=== PATIENT | female | born 1970 | race American Indian/Alaskan Native ===

== ENCOUNTER 2016-06-26 08:23 | Emergency (ER) | payer MEDICAID ==
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
[~2016-06-26 08:23] MED LIST: ATIVAN 1 MG1 MG PO; HYDROCORT 1% CR30 GM TOP; LEVOTHROID (S100 MCG PO; NEURONTIN300 MG PO; NICODERM / HABIT7 MG TOP; NORCO 7.5-3251 EACH PO; SEROQUEL100 MG PO; VISTARIL25 M1 PO; ZYPREXA10 MG PO; [UNRECOGNIZED DRUG - OTHER]
[2016-06-26 08:54] LABS: BASOPHIL % 0.8 %; HEMATOCRIT 44.1 % (33.0-46.0); HEMOGLOBIN 14.4 g/dL (10.0-15.0); LYMPHOCYTE % 40.4 %; MCH 29.4 pg (27.0-34.0); MCHC 32.7 gm/dL (32.0-36.5); MCV 90.2 fl (83.0-98.0); MONOCYTE # 0.4 K/uL (0.0-1.0); MONOCYTE % 8.9 %; MPV 10.6 fl (9.4-12.4); NEUTROPHIL # (ANC) 2.4 K/uL (1.8-7.8); NEUTROPHIL % 49.9 %; NRBC % 0 /100WBC (0-0.00); PLATELET COUNT 224 K/uL (150-450); RBC 4.89 M/uL (3.50-5.50); RDW-CV 13.7 % (11.9-14.6); WBC 4.8 K/uL (4.0-11.0)
[2016-06-26 09:04] LABS: PROTIME 10.9 SECONDS (9.6-11.1); PTT 25 SECONDS (25-32)
[2016-06-26 09:17] LABS: ALBUMIN 4.2 gm/dL (3.5-5.0); ALK PHOS 68 IU/L (33-138); ALT 11 IU/L (12-78); ANION GAP 10.6 (10.0-19.0); AST 9 IU/L (10-40); BLOOD UREA NITROGEN 14 mg/dL (6-24); CALCIUM 8.8 mg/dL (8.5-10.5); CHLORIDE 110 mMol/L (96-110); CO2 24 mMol/L (22-32); CREATININE 0.6 mg/dL (0.5-1.1); ESTIMATED GFR (MDRD EQUATION) > 60; POTASSIUM 3.6 mMol/L (3.7-5.1); SODIUM 141 mMol/L (135-145); TOTAL BILIRUBIN 0.5 mg/dL (0.0-1.5); TOTAL PROTEIN 7.6 g/dL (6.0-8.4)
[2016-06-26 09:48] LABS: BARBITURATE NEGATIVE (NEGATIVE); COCAINE NEGATIVE (NEGATIVE); OPIATES POSITIVE (NEGATIVE)
[2016-06-26 09:50] LABS: AMPHETAMINE NEGATIVE (NEGATIVE)
[2016-07-17] MEDS ORDERED: PROZAC20 MG PO (10:15)
[2016-07-17] MEDS ORDERED: AMBIEN5 MG PO (10:22)
[2016-07-17] MEDS ORDERED: TYLENOL325 MG PO (10:23)
[2016-07-17] MEDS ORDERED: XANAX0.25 MG PO (10:27)
[2016-08-04] MEDS ORDERED: NICODERM CQ1 EAC1 TOP (11:22)
== END 2016-06-26 10:45 | disposition disaster alternative care site (69) ==
LOC: GMED 08:23
PROVIDERS: Family Medicine
DX: F41.9 Anxiety disorder, unspecified (principal); E03.9 Hypothyroidism, unspecified; Z88.1 Allergy status to other antibiotic agents; Z88.8 Allergy status to other drugs, medicaments and biological substances; Z90.49 Acquired absence of other specified parts of digestive tract
CPT/HCPCS: G0480

== ENCOUNTER 2016-07-13 17:49 | Emergency (ER) | payer MEDICAID ==
--- NOTE | ~2016-07-13 | ER ---
PATIENT'S NAME: BASSEM [facility] AGE: 45 Y [address] ROOM: [place] [address] LOCATION: [facility] ADMIT DATE: 07/13/2016 ER/Outpatient Report DISCHARGE DATE: 07/13/2016 FAMILY PHYSICIAN: Mak Stone MD ATTENDING PHYSICIAN: David Lopez Admission date and time are documented on the medical record. I saw the patient at 1830 hours. CHIEF COMPLAINT: Anxiety. HISTORY OF PRESENT ILLNESS: This patient is a 45-year-old female who has a history of anxiety and panic attacks. Ran out of her Ativan on Wednesday. She kind of had a "panic attack" around 1700 hours this afternoon. She had racing thoughts, room was spinning, short of breath, shaky. She had generalized headache. Some nausea, but no vomiting, diarrhea. No urinary complaints. No joint or muscle swelling, redness, or pain. No skin eruptions or rash. Does have a history of bipolar disorder, psychosis, anxiety, depression, or seizure disorder. No endocrine problems. No fall or trauma. No recent colds, coughs, flus, fever, chills, or sweats. No chest pain. No abdominal pain. HOME MEDICATIONS: See attached medication list. ALLERGIES: ROCEPHIN, TRAMADOL, AND TORADOL. SOCIAL HISTORY: The patient smokes half-pack of cigarettes per day and nondrinker. SIGNIFICANT PAST MEDICAL HISTORY: Headaches, bipolar disorder, psychosis, seizure disorder, anxiety, depression, hypothyroidism, compression fracture, L3, L4, L5, T12, and tobacco abuse. OPERATIONS: Cholecystectomy. REVIEW OF SYSTEMS: All systems reviewed by me are negative with the exception of those discussed in the history of present illness. PHYSICAL EXAMINATION: VITAL SIGNS: Temperature 96.4, tympanic, pulse 72, regular, respirations 18, PATIENT'S NAME: BASSEM [facility] AGE: 45 Y [address] ROOM: [place] [address] LOCATION: [facility] ADMIT DATE: 07/13/2016 ER/Outpatient Report DISCHARGE DATE: 07/13/2016 FAMILY PHYSICIAN: Mak Stone MD ATTENDING PHYSICIAN: David Lopez blood pressure 129/82, and O2 sat on room air is 96%. HEAD: Normocephalic. EYES, EARS, NOSE, AND THROAT: Clear. Mucous membranes moist. NECK: Negative. SPINE: Negative. LUNGS: Clear. Good airflow. No rales, rhonchi, or wheezes. HEART: Regular. Pulses are palpable. ABDOMEN: Soft, nondistended, nontender. Good bowel tones. No organomegaly or abnormal mass palpable. EXTREMITIES: No peripheral edema, cyanosis, or deformity. NEUROVASCULAR: Intact. SKIN: Clear. IMPRESSION: 1. Anxiety. 2. Headache. 3. History of bipolar disorder. 4. History of psychosis. 5. History of seizure disorder. 6. Hypothyroidism. 7. Tobacco abuse. PLAN: The patient was given Ativan 1 mg orally in the emergency room. Discharged home. Observation. Activity as tolerated. Continue present home medications and care. Ativan 1 mg 3 times a day. Follow up with personal physician as scheduled. Discussed ensued with the patient concerning my findings and recommendations, she understands. MD MYNOR GOTTI/modl /[id number] d: 07/14/1653 t: 07/16/16 181, OUTPATIENT REPORT
[2016-07-17] MEDS ORDERED: PROZAC20 MG PO (10:15)
[2016-07-17] MEDS ORDERED: AMBIEN5 MG PO (10:22)
[2016-07-17] MEDS ORDERED: TYLENOL325 MG PO (10:23)
[2016-07-17] MEDS ORDERED: XANAX0.25 MG PO (10:27)
[2016-08-04] MEDS ORDERED: NICODERM CQ1 EAC1 TOP (11:22)
== END 2016-07-13 18:47 | disposition disaster alternative care site (69) ==
LOC: GMED 17:49
DX: F41.9 Anxiety disorder, unspecified (principal); R51 Headache; G40.909 Epilepsy, unspecified, not intractable, without status epilepticus; E03.9 Hypothyroidism, unspecified; F17.210 Nicotine dependence, cigarettes, uncomplicated; Z90.49 Acquired absence of other specified parts of digestive tract; Z88.8 Allergy status to other drugs, medicaments and biological substances

== ENCOUNTER 2016-07-27 17:48 | Inpatient (IN) | payer MEDICAID ==
[~2016-07-27] VITALS: Ht 165.1 cm; Wt 57.6 kg
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
--- NOTE | ~2016-07-27 | DS ---
PATIENT'S NAME: BASSEM [facility] AGE: 45 Y [address] ROOM: [place] [address] LOCATION: GPCU ADMIT DATE: 07/27/2016 Discharge Summary DISCHARGE DATE: 07/30/2016 FAMILY PHYSICIAN: Physician, Unknown ATTENDING PHYSICIAN: Krunal Hummel V PRINCIPAL DIAGNOSES: 1. Tylenol overdose. 2. Suicide attempt. 3. Bipolar disorder. 4. Hypernatremia. BRIEF HOSPITAL COURSE: Please look at the admission H and P for detailed history on initial presentation. The patient was admitted for evaluation and management of Tylenol overdose and the patient's Tylenol level was noted to be over 280 at presentation. Overdose appears to be related to suicide attempt. The patient has known extensive history of psych disorders including bipolar disorder. Fortunately, the patient during her hospitalization was closely monitored for liver injury with frequent checks of Tylenol level and her liver function was closely monitored and had been stable with no signs of liver injury and 24 hours ago, her Tylenol level has dropped to undetectable levels and the patient does not appear to have any symptoms and any sequelae developing from the overdose itself. The patient had received over 20 hours of Acetadote infusion and this has been stopped yesterday after the Tylenol level was essentially undetectable and no biochemical findings of her liver injury was noted. The patient today is stable to be discharged to [facility] for an inpatient psych stay. PHYSICAL EXAMINATION: GENERAL: The patient today was awake, alert, and oriented x3, ambulating well. CHEST: Clear to auscultation bilaterally. ABDOMEN: Soft, nontender, and nondistended. Positive bowel sounds. NEURO: Nonfocal. DISPOSITION: [facility] Inpatient Stay. MEDICATIONS: Per MAR. Greater than 30 minutes were spent in facilitating discharge. STARLA WEST MD PATIENT'S NAME: BASSEM [facility] AGE: 45 Y [address] ROOM: [place] [address] LOCATION: GPCU ADMIT DATE: 07/27/2016 Discharge Summary DISCHARGE DATE: 07/30/2016 FAMILY PHYSICIAN: Physician, Unknown ATTENDING PHYSICIAN: Krunal Hummel V BG/modl /[id number] d: 07/31/167 t: 08/17/16 1200, DISCHARGE SUMMARY
--- NOTE | ~2016-07-27 | ER ---
PATIENT'S NAME: BASSEM [facility] AGE: 45 Y [address] ROOM: [place] [address] LOCATION: GPCU ADMIT DATE: 07/27/2016 ER/Outpatient Report DISCHARGE DATE: FAMILY PHYSICIAN: PHYSICIAN, UNKNOWN ATTENDING PHYSICIAN: MAME SAENZ V Time of Arrival: 1751 hours. Time of Evaluation: 1751 hours CHIEF COMPLAINT: Lethargy. HISTORY OF PRESENT ILLNESS: The patient was combative and uncooperative while at the [place] today. [place] [employer] had been contacted, they did pick the patient up at the [place], took her to [facility] for inpatient therapy. Nurse's notes from [facility] states that the patient was at group tonight. She seemed unsteady, very tired, and felt like her words were slurred. She repeatedly said that she needed something to eat. When asked if she hurt anywhere, she had said no to them. They were just concerned that with her unsteadiness and her slurred speech that she needed to be further evaluated. So, she was brought here to the ER per EMS. EMS did start an IV. They did blood glucose, it was 139. They did start an IV in her right hand. She opened her eyes and was respond to them and follow commands, but would immediately go back to sleep. She does open her eyes here in the ER for us, attempts to answers questions. She denies having any pain. CURRENT MEDICATIONS: On the chart and were reviewed by me. ALLERGIES: ON THE CHART AND WERE REVIEWED BY ME. PAST MEDICAL HISTORY: Bipolar disorder, PTSD, anxiety, depression, psychosis, and drug abuse. PAST SURGERIES: Unknown. SOCIAL HISTORY: She has been living at the [place], has been doing outpatient treatment at [facility]. Jose F Guzman is well familiar with the patient. REVIEW OF SYSTEMS: All negative other than those mentioned in the HPI. PATIENT'S NAME: BASSEM WR[facility] AGE: 45 Y [address] ROOM: [address] [address] LOCATION: GPCU ADMIT DATE: 07/27/2016 ER/Outpatient Report DISCHARGE DATE: FAMILY PHYSICIAN: PHYSICIAN, UNKNOWN ATTENDING PHYSICIAN: KAGANAS,MAME V PHYSICAL EXAMINATION: VITAL SIGNS: She weighed 57.6 kg, blood pressure was 92/64, pulse is 61, respirations 16, temperature of 96.2, and O2 saturation is 97% on room air. GENERAL: She does open her eyes to verbal command, but is very lethargic, does not cooperate with getting undressed. IV that was started by the ambulance is infusing at a wide-open rate. HEENT: Pupils are equal reactive to light. Oropharynx is clear. NECK: Supple. No lymphadenopathy. LUNGS: Lung sounds are clear throughout. HEART: Regular rate and rhythm. ABDOMEN: Soft. Nondistended. Bowel sounds are present. LABORATORY DATA AND X-RAYS: EKG was completed, it shows a sinus rhythm. Lab work was drawn. As the labs was being drawn, the patient becomes uncooperative, pulling out things, pulls out her IV, is not cooperative with the labs or the staff at all. We did get lab. The CBC is within normal limits. Chem panel: Sodium is 139, potassium is 4.1, chloride 113, CO2 is 20 with an anion gap of 10.1, BUN is 13 with a creatinine of 0.8, total bilirubin is normal at 0.5 with an AST of 19 and ALT of 23. Alcohol level is negative. Acetaminophen level comes back at 283.1. Salicylate level is 5.6. Serum HCG is negative. Her pro-time is 10.1 with an INR of 1. Free T4 is 1.1 with a TSH of 0.464. EMERGENCY DEPARTMENT COURSE: The patient became very abusive and uncooperative. Dr. Machado is in the room with the patient also. [facility] was contacted. Security was contacted. The patient was given Ativan 2 mg IM stat. Ativan 2mg IM was repeated later as behavior escalated again. The patient was placed in restraints related to violent behavior. Fluids of normal saline were started at a right open rate after PowerGlide IV was completed and cysteine IV was started as per protocol from Poison Control, start with 150 mg/kg for the first hour and progressed from there. Dr. Saenz was contacted. Report was given. The patient did calm down after the Ativan and was restful. IMPRESSION: Acetaminophen overdose, unknown duration. PLAN: The patient will be admitted to the hospital per care of Dr. Saenz. PAOLA ZAMORA APRN FOR PRIYANK MACHADO MD PATIENT'S NAME: EFRAÍN LUEVANO [facility] AGE: 45 Y [address] ROOM: [place] [address] [facility]: 07/27/2016 ER/Outpatient Report DISCHARGE DATE: FAMILY PHYSICIAN: PHYSICIAN, UNKNOWN ATTENDING PHYSICIAN: MAME SAENZ/estela /[id number] d: 07/28/16299 t: 08/05/16 0604, OUTPATIENT REPORT
[~2016-07-27 17:48] MED LIST changes: -NICODERM CQ1 EAC1 TOP
[2016-07-27 18:32] LABS: BASOPHIL % 0.5 %; HEMATOCRIT 44.1 % (33.0-46.0); HEMOGLOBIN 14.4 g/dL (10.0-15.0); IMMATURE GRANULOCYTE % 0.3 %; LYMPHOCYTE # 1.4 K/uL (0.8-4.0); LYMPHOCYTE % 19.4 %; MCH 30.3 pg (27.0-34.0); MCHC 32.7 gm/dL (32.0-36.5); MCV 92.6 fl (83.0-98.0); MONOCYTE # 0.5 K/uL (0.0-1.0); MPV 11.2 fl (9.4-12.4); NEUTROPHIL # (ANC) 5.5 K/uL (1.8-7.8); NEUTROPHIL % 73.8 %; NRBC % 0 /100WBC (0-0.00); PLATELET COUNT 189 K/uL (150-450); RBC 4.76 M/uL (3.50-5.50); RDW-CV 14.2 % (11.9-14.6); WBC 7.4 K/uL (4.0-11.0)
[2016-07-27 18:50] LABS: ALBUMIN 3.9 gm/dL (3.5-5.0); ALK PHOS 59 IU/L (33-138); ALT 23 IU/L (12-78); ANION GAP 10.1 (10.0-19.0); AST 19 IU/L (10-40); BLOOD UREA NITROGEN 13 mg/dL (6-24); CALCIUM 8.6 mg/dL (8.5-10.5); CHLORIDE 113 mMol/L (96-110); CO2 20 mMol/L (22-32); CREATININE 0.8 mg/dL (0.5-1.1); ESTIMATED GFR (MDRD EQUATION) > 60; POTASSIUM 4.1 mMol/L (3.7-5.1); SODIUM 139 mMol/L (135-145); TOTAL PROTEIN 7.4 g/dL (6.0-8.4)
[2016-07-27 18:54] LABS: TOTAL BILIRUBIN 0.5 mg/dL (0.0-1.5)
[2016-07-27 19:58] LABS: PROTIME 10.5 SECONDS (9.8-11.4)
[2016-07-27 21:59] LABS: BARBITURATE NEGATIVE (NEGATIVE); COCAINE NEGATIVE (NEGATIVE)
[2016-07-27 22:01] LABS: AMPHETAMINE NEGATIVE (NEGATIVE); OPIATES POSITIVE (NEGATIVE)
[2016-07-28 00:53] LABS: ALBUMIN 3.5 gm/dL (3.5-5.0); ALK PHOS 53 IU/L (33-138); ALT 33 IU/L (12-78); BLOOD UREA NITROGEN 10 mg/dL (6-24); CALCIUM 7.9 mg/dL (8.5-10.5); CHLORIDE 113 mMol/L (96-110); CO2 18 mMol/L (22-32); CREATININE 0.7 mg/dL (0.5-1.1); ESTIMATED GFR (MDRD EQUATION) > 60; SODIUM 141 mMol/L (135-145); TOTAL BILIRUBIN 0.4 mg/dL (0.0-1.5); TOTAL PROTEIN 6.6 g/dL (6.0-8.4)
[2016-07-28 00:54] LABS: ANION GAP 13.2 (10.0-19.0); AST 23 IU/L (10-40); POTASSIUM 3.2 mMol/L (3.7-5.1)
[2016-07-28 01:06] LABS: BASOPHIL % 0.3 %; HEMATOCRIT 40.9 % (33.0-46.0); HEMOGLOBIN 13.3 g/dL (10.0-15.0); IMMATURE GRANULOCYTE % 0.3 %; LYMPHOCYTE # 1.7 K/uL (0.8-4.0); LYMPHOCYTE % 26.7 %; MCH 30.2 pg (27.0-34.0); MCHC 32.5 gm/dL (32.0-36.5); MCV 92.7 fl (83.0-98.0); MONOCYTE # 0.7 K/uL (0.0-1.0); MONOCYTE % 10.7 %; MPV 11.6 fl (9.4-12.4); NRBC % 0 /100WBC (0-0.00); PLATELET COUNT 172 K/uL (150-450); RBC 4.41 M/uL (3.50-5.50); WBC 6.4 K/uL (4.0-11.0)
[2016-07-28 01:14] LABS: INR - (THERAPEUTIC) 1.19 (0.92-1.07); PROTIME 12.5 SECONDS (9.8-11.4); PTT 28 SECONDS (25-32)
--- NOTE | 2016-07-28 04:08 | NUR ---
Patient admitted from ER for tylenol overdose. Patient was initially taken to [facility] due to threat to harm self or others per report. On assessment at [facility] patient was slurring words and unable to ambulate on her own and was transfered to [facility] ER to be medically evaluated. In ER she was placed in leather restraints for kicking and bitting. Poison control made aware of acetaminophen level of 283.1 and mucomist protocol started. Prior to transfer to PCU patient was reduced from nancy to soft wrist restraints, once on PCU patient uncooperative, kicking, bitting and cussing at staff, 4 point restraints applied at 2315. made aware of condition.
--- NOTE | 2016-07-28 05:28 | NUR ---
Significant Event:Patient is drowsy and disoriented to place/time. VSS on RA. Afebrile. Skin is cool to touch. Powerglide placed to upper R)arm with acetylcystene infusing per poison control recommendations. Current bag hanging to be given over 16 hours. Patient taken out of 4 point restraints to soft wrist restraints at 0500. Patient has rested throughout the shift. When she awakens she states that she is hunger and then falls back to sleep. Sahu to DD with 500 yellow output. Follow up:[facility] to evaluate prior to discharge. Possible transfer back to [facility] when cleared medically.
--- NOTE | 2016-07-28 05:39 | NUR ---
Patient resting in bed with no combative issues. Removed 4 point restraints and placed soft wrist restraints on patient. Patient remains in a one to one sitter.
[2016-07-28 06:36] LABS: BASOPHIL % 0.3 %; HEMATOCRIT 42.2 % (33.0-46.0); HEMOGLOBIN 13.9 g/dL (10.0-15.0); IMMATURE GRANULOCYTE % 0.2 %; LYMPHOCYTE # 1.5 K/uL (0.8-4.0); LYMPHOCYTE % 24.7 %; MCH 29.9 pg (27.0-34.0); MCHC 32.9 gm/dL (32.0-36.5); MCV 90.8 fl (83.0-98.0); MONOCYTE # 0.6 K/uL (0.0-1.0); MONOCYTE % 9.7 %; MPV 10.9 fl (9.4-12.4); NEUTROPHIL # (ANC) 3.8 K/uL (1.8-7.8); NEUTROPHIL % 65.1 %; NRBC % 0 /100WBC (0-0.00); PLATELET COUNT 189 K/uL (150-450); RBC 4.65 M/uL (3.50-5.50); RDW-CV 14.2 % (11.9-14.6); WBC 5.9 K/uL (4.0-11.0)
[2016-07-28 06:44] LABS: INR - (THERAPEUTIC) 1.14 (0.92-1.07); PTT 26 SECONDS (25-32)
[2016-07-28 06:52] LABS: ALBUMIN 3.3 gm/dL (3.5-5.0); ALK PHOS 50 IU/L (33-138); ALT 29 IU/L (12-78); ANION GAP 10.1 (10.0-19.0); AST 16 IU/L (10-40); BLOOD UREA NITROGEN 7 mg/dL (6-24); CHLORIDE 115 mMol/L (96-110); CO2 22 mMol/L (22-32); CREATININE 0.7 mg/dL (0.5-1.1); ESTIMATED GFR (MDRD EQUATION) > 60; POTASSIUM 3.1 mMol/L (3.7-5.1); SODIUM 144 mMol/L (135-145); TOTAL PROTEIN 6.6 g/dL (6.0-8.4)
[2016-07-28 07:04] LABS: TOTAL BILIRUBIN 0.5 mg/dL (0.0-1.5)
[2016-07-28 12:35] LABS: BASOPHIL % 0.7 %; HEMATOCRIT 41.3 % (33.0-46.0); HEMOGLOBIN 13.6 g/dL (10.0-15.0); IMMATURE GRANULOCYTE % 0.2 %; LYMPHOCYTE # 1.1 K/uL (0.8-4.0); LYMPHOCYTE % 19.6 %; MCH 29.8 pg (27.0-34.0); MCHC 32.9 gm/dL (32.0-36.5); MCV 90.6 fl (83.0-98.0); MONOCYTE # 0.4 K/uL (0.0-1.0); MONOCYTE % 7.1 %; MPV 11.5 fl (9.4-12.4); NEUTROPHIL # (ANC) 4.1 K/uL (1.8-7.8); NEUTROPHIL % 72.4 %; NRBC % 0 /100WBC (0-0.00); PLATELET COUNT 197 K/uL (150-450); RBC 4.56 M/uL (3.50-5.50); RDW-CV 14.2 % (11.9-14.6); WBC 5.6 K/uL (4.0-11.0)
[2016-07-28 12:50] LABS: INR - (THERAPEUTIC) 1.13 (0.92-1.07); PROTIME 11.9 SECONDS (9.8-11.4); PTT 25 SECONDS (25-32)
[2016-07-28 12:55] LABS: ALBUMIN 3.3 gm/dL (3.5-5.0); ALK PHOS 48 IU/L (33-138); ALT 25 IU/L (12-78); ANION GAP 9.2 (10.0-19.0); AST 14 IU/L (10-40); BLOOD UREA NITROGEN 7 mg/dL (6-24); CALCIUM 8.2 mg/dL (8.5-10.5); CO2 22 mMol/L (22-32); CREATININE 0.7 mg/dL (0.5-1.1); ESTIMATED GFR (MDRD EQUATION) > 60; POTASSIUM 3.2 mMol/L (3.7-5.1); SODIUM 144 mMol/L (135-145); TOTAL BILIRUBIN 0.4 mg/dL (0.0-1.5); TOTAL PROTEIN 6.6 g/dL (6.0-8.4)
[2016-07-28 13:08] LABS: CHLORIDE 116 mMol/L (96-110)
--- NOTE | 2016-07-28 15:58 | NUR ---
Reviewed India's chart and also talked with her primary care RN, Prisca. Prisca tells me that she will be staying at least one more day until she is medically stable and then will most likely go back to [facility]. I did try to call over to [facility] to talk with Deborah in the Access [facility], but she was with another client so I didn't get to visit with her or update her on India's status. In looking through her chart, I did notice that there was a sticky note on the chart to notify D when she is cleared to dismiss from [facility]. However, the proper form had not been filled out by D so therefore I did follow up with security. Per Robert in Security, they didn't have a copy of the release of information that was supposed to be filled out by D so we could notify them when [place] was ready for dismissal. I will follow up with D about this tomorrow and get the needed form filled out. I also brought this up to my solid waste division supervisor, Maricarmen, so we could follow up with the needed protocol as far as [employer] not filling out proper paperwork so we can talk with them about patient being ready to dismiss. I let Prisca know that I would come by in the morning first thing and see patient and try to get her back to [facility] when she was medically cleared to do so. I did see that she was still a 1:1 sitter and that there was no family in the room to visit with when I went by. I also noticed she lives at [facility] so I anticipate that she will be able to return there once her stay is over at [facility]. Will continue to follow and assist.
[2016-07-28 18:08] LABS: ALBUMIN 3.4 gm/dL (3.5-5.0); ALK PHOS 50 IU/L (33-138); ALT 21 IU/L (12-78); ANION GAP 13.6 (10.0-19.0); AST 13 IU/L (10-40); BLOOD UREA NITROGEN 9 mg/dL (6-24); CALCIUM 8.2 mg/dL (8.5-10.5); CHLORIDE 114 mMol/L (96-110); CO2 21 mMol/L (22-32); CREATININE 0.7 mg/dL (0.5-1.1); ESTIMATED GFR (MDRD EQUATION) > 60; POTASSIUM 3.6 mMol/L (3.7-5.1); SODIUM 145 mMol/L (135-145); TOTAL PROTEIN 6.7 g/dL (6.0-8.4)
[2016-07-28 18:09] LABS: TOTAL BILIRUBIN 0.3 mg/dL (0.0-1.5)
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
--- NOTE | 2016-07-29 04:40 | NUR ---
Significant Event: Patient alert/oriented, repetitive in asking questions, VSS, Acetalcystine gtt discontinued as Acitaminophen level <2.0, patient stated she had 10/10 headache pain, prn Tylenol was refused by patient, Ativan given at 2100, order recieved and offered of prn Motrin, patient also refused this and became very agitated stating"she was going to leave"and "wanted to talk to the Doctor", patient diverted back to room and [facility] called, Dr Hummel spoke with patient about pain control options which patient refused Tylenol, Motrin, and a heating pad, [facility] evaluated and placed patient in EPC, patient called 911 from phone in room 3 times, very agitated and verbally threatening to both self and RNs, Ativan given at 0100, patient slept and was calm through the rest of the night, 1:1 supervision continues Follow up: d/c to [facility]? must call [facility] on discharge
--- NOTE | 2016-07-29 05:17 | NUR ---
Third assessment not completed, as patient was sleeping and did not want to be woken up. MD orders to assess as patient allows. 1:1 supervision and close monitoring continue
[2016-07-29 06:27] LABS: ALBUMIN 3.3 gm/dL (3.5-5.0); ALK PHOS 46 IU/L (33-138); ALT 20 IU/L (12-78); AST 13 IU/L (10-40); BLOOD UREA NITROGEN 9 mg/dL (6-24); CALCIUM 8.3 mg/dL (8.5-10.5); CO2 20 mMol/L (22-32); CREATININE 0.6 mg/dL (0.5-1.1); ESTIMATED GFR (MDRD EQUATION) > 60; POTASSIUM 3.4 mMol/L (3.7-5.1); TOTAL PROTEIN 6.4 g/dL (6.0-8.4)
[2016-07-29 06:29] LABS: ANION GAP 10.4 (10.0-19.0); CHLORIDE 119 mMol/L (96-110); SODIUM 146 mMol/L (135-145); TOTAL BILIRUBIN 0.4 mg/dL (0.0-1.5)
--- NOTE | 2016-07-29 09:36 | NUR ---
918 Call to Alicia at [facility] to get some information from her about [place] and also inquire about her cloths and other personal items she has there at the request of [place] per her 1:1 sitter. Alicia was in a meeting so she couldn't take my call, asked that she call me back when she is able to do so. 919 Tried to touch base with someone in the Access Center RE:[place]'s case, no one answered the [phone] number so I will try to phone them again later this morning. 923 Call back from Alicia. She tells me that they have all of [place]'s personal items gathered up and are holding them, but when she is dismissed from either here or [facility], she will not be allowed to return back to [facility] in [place] and she can't go to the one in [place] either "due to her stealing items and her verbal threats." Alicia states that the best bet for her is to try [facility] in [place] when she is dismissed. Alicia also tells me that she will be allowed to come and get her personal things, but not stay there.
--- NOTE | 2016-07-29 15:24 | NUR ---
Significant event: Alert, drowsy at times- usually after ativan is given. Oriented x3. Continued to be easily agitated this shift. At 0830 had C/O [place] patient asked for motrin, when giving her the medication, she began to get very agitated stating, "I'm going to Fing leave and kill myself, because I can't deal with this pain." Notified MD, got 1 tab of percocet ordered. Home medications restarted, along with percocet Q8H PRN. After giving home medications, patient is more calm. Up in hallways with 1 assist, several laps. Patient is currently napping. Xanax was given at 1232, and [place] given at 1250. Follow Up: Transfer to [facility] tomorrow, if room available.
[2016-07-29 18:33] LABS: ALBUMIN 3.4 gm/dL (3.5-5.0); ALK PHOS 47 IU/L (33-138); ALT 16 IU/L (12-78); AST 13 IU/L (10-40); BLOOD UREA NITROGEN 7 mg/dL (6-24); CALCIUM 8.1 mg/dL (8.5-10.5); CO2 23 mMol/L (22-32); CREATININE 0.6 mg/dL (0.5-1.1); ESTIMATED GFR (MDRD EQUATION) > 60; POTASSIUM 3.5 mMol/L (3.7-5.1); TOTAL PROTEIN 6.3 g/dL (6.0-8.4)
[2016-07-29 18:34] LABS: ANION GAP 11.5 (10.0-19.0); CHLORIDE 116 mMol/L (96-110); SODIUM 147 mMol/L (135-145); TOTAL BILIRUBIN 0.2 mg/dL (0.0-1.5)
--- NOTE | 2016-07-29 23:34 | NUR ---
At approximately 1845, patient was heard yelling at DIESEL ENGINE TESTER in the room regarding her PRN [place]. I went in the room and attempted to explain to the patient that she could not have it until 1999. Patient refused to listen and continued to yell. I told the patient that she could have more [place] until it was time for her to have it again. Patient then threw her supper tray across the room. I assisted the DIESEL ENGINE TESTER in picking up the food from the floor and she began to throw objects at us. I told the patient that this type of behavior was inappropriate; she then got out of bed and pulled out her IV. Patient then continued to yell at staff to give her more pain medications and Xanax. Dr. Murrieta was notified and code campbell was initiated. He changed her Xanax to q.4hr PRN and ordered ok to leave her without IV access. Patient refused her vital signs to be checked and refused to be assessed. Dr. Gonzalez did come up to see the patient. No new orders after this.
--- NOTE | 2016-07-30 00:04 | NUR ---
Rounded on patient at around 2300 and refused vital signs check.
--- NOTE | 2016-07-30 04:03 | NUR ---
Patient refused to be woken up for third assessment. Continues to rest comfortably in bed.
--- NOTE | 2016-07-30 06:47 | NUR ---
Significant Event: Patient slept well from 1999 until around 0430. She refused assessments and vital signs check. [place] last given at 0430 along with Xanax. Continues to be in 1:1 observation. Follow up: Transfer to [facility] today? Patient is currently EPC'd.
[2016-07-30 09:10] LABS: ALBUMIN 3.7 gm/dL (3.5-5.0); ALK PHOS 53 IU/L (33-138); ALT 18 IU/L (12-78); AST 14 IU/L (10-40); CALCIUM 8.2 mg/dL (8.5-10.5); CHLORIDE 115 mMol/L (96-110); CO2 25 mMol/L (22-32); CREATININE 0.7 mg/dL (0.5-1.1); ESTIMATED GFR (MDRD EQUATION) > 60; POTASSIUM 3.6 mMol/L (3.7-5.1); TOTAL BILIRUBIN 0.2 mg/dL (0.0-1.5); TOTAL PROTEIN 6.6 g/dL (6.0-8.4)
[2016-07-30 09:11] LABS: ANION GAP 10.6 (10.0-19.0); BLOOD UREA NITROGEN 15 mg/dL (6-24); SODIUM 147 mMol/L (135-145)
--- NOTE | 2016-07-30 11:51 | NUR ---
Significant Event: VSS, on room air. PT A&O x3. Cooperative with cares, is irritable at times. Ambulates with SBA. Percocet given at 0735. Xanax given at 0735. Tolerating diet. Voiding without difficulties. BM today. Shower this AM. PT does have thoughts of depression/suicide. Follow up:
--- NOTE | 2016-07-30 12:32 | NUR ---
Call to Deborah at [facility] to clarify that they did have a bed today for [place] and that they aren't on diversion. Deborah tells me that they do have a bed for [place] and as soon as Dr. Murrieta has rounded and signed orders, we can then have RN to RN report called and she will then call me to confirm that they can accept. I updated Dr. Murrieta to this. He was around to do orders. Once orders were complete, JUAN DIEGO Wilkins called in RN to RN report. After orders were done and RN to RN had been called, I called over to [facility], talked with Juhi in dispatch. She tells me that they will have an officer up here to mixing picker tender [place] at 1300 today and take her over to [facility]. I asked that the office call my direct line before he is on the PCU floor so I can update nursing that they are coming. Deborah called me back, let me know that everything looked good and doctor had accepted her to come to them today. Let her know that I had transport set up for 1300 so they could look for her to arrive around that time. Deborah was fine with this. I offered to fax over dismissal orders to them, but she tells me that they can just be sent with the officers and they will see them when she gets there. [place] was notified that she will be going to [facility] today at 1300. No other questions, needs or concerns. CM to continue to follow and assist. Plan for [facility] at 1300.
[2016-08-04] MEDS ORDERED: NICODERM CQ1 EAC1 TOP (11:22)
== END 2016-07-30 13:09 | DRG 917 ==
LOC: GMED 17:48 → GPCU 20:40
PROVIDERS: Emergency Medicine; Internal Medicine; ADMIT Internal Medicine
DX: T39.1X2A Poisoning by 4-Aminophenol derivatives, intentional self-harm, initial encounter (principal); G92 Toxic encephalopathy; E87.0 Hyperosmolality and hypernatremia; Z78.1 Physical restraint status; F31.9 Bipolar disorder, unspecified; F43.10 Post-traumatic stress disorder, unspecified; F41.9 Anxiety disorder, unspecified; Z59.0 Homelessness
CPT/HCPCS: C1751; G0480; J1630; J2060; J3480; J7030; J7060

== ENCOUNTER → 2016-07-27 | Outpatient (CLI) | payer MEDICAID ==
[~2016-07-27] MED LIST changes: +AMBIEN5 MG PO; +NICODERM CQ1 EAC1 TOP; +PROZAC20 MG PO; +TYLENOL325 MG PO; +XANAX0.25 MG PO
== END | disposition disaster alternative care site (69) ==
LOC: GAMB 17:22
DX: R53.1 Weakness (principal); R69 Illness, unspecified
CPT/HCPCS: A0425; A0427; J7030